=== PATIENT | female | born 1975 | race Caucasian/White ===

== ENCOUNTER → 2017-06-15 | Outpatient (CLI) | payer BC ==
--- NOTE | 2017-06-18 09:53 | MAM ---
EXAM DESCRIPTION: 3D Screening BILATERAL CLINICAL HISTORY: 41 yearsFemaleSCREEN. Postmenopausal. No HRT. COMPARISON: Baseline study at this facility. No prior reports available. TECHNIQUE: Bilateral CC and MLO projection full-field images, 3-D tomosynthesis digital mammographic technique. Also bilateral synthesized CC/ MLO full-field images. CAD not utilized. FINDINGS: The breast parenchymal density pattern is: Extremely dense breast tissue, which lowers the sensitivity of mammography. No skin thickening or nipple retraction focal asymmetry versus architectural distortion in the lower inner quadrant of the posterior third of the left breast near the skin surface at approximately 800 clock position and 8 cm from the breast. Not associated with calcifications. Bilateral solitary microcalcifications. No focal, stellate mass or density, , and no suspicious microcalcifications bilaterally . No focal asymmetry or architectural distortion in the right breast. IMPRESSION: BI-RADS CATEGORY: 0 - INCOMPLETE- Need additional imaging evaluation. FOLLOW-UP: Recall for additional imaging: Targeted ultrasound of the region of interest in the lower inner quadrant of the left breast, relatively superficial. Written communication explaining the results and follow-up will be mailed to the patient and referring care provider. Electronically signed by: Akash Lopez MD 06/18/2017 9:51 AM CDT Workstation: [id number]
== END ==
LOC: MAMMO 13:08
PROVIDERS: ATTEND Emergency Medicine
DX: Z12.31 Encounter for screening mammogram for malignant neoplasm of breast (principal)
CPT/HCPCS: G0202; G0279

== ENCOUNTER → 2017-07-01 | Outpatient (CLI) | payer BC ==
--- NOTE | 2017-07-01 15:41 | US ---
EXAM DESCRIPTION: Breast,Left ultrasound. CLINICAL HISTORY: 41 yearsFemaleABNORMAL MAMMO. History of multiple bilateral breast cysts. Palpable lump in the region of interest in the lower inner quadrant left breast. COMPARISON: Digital 3-D tomosynthesis screening bilateral breasts 06/15/2017. TECHNIQUE: Transcutaneous scanning of the lower inner quadrant of the left breast utilizing two-dimensional and Doppler modes. Scanning performed by the parts designer and Dr. Lopez. FINDINGS: No ultrasound findings of discrete solid mass, cyst, no large calcifications, or parenchymal edema, corresponding to the mammographic finding. At the 800 clock position of the left breast 4 cm from the nipple, a oval-shaped mass predominantly anechoic measuring 5 x 4 mm is visualized. Parallel orientation with well-defined borders and posterior acoustic enhancement. Consistent with a cyst. No solid mass, calcifications, or parenchymal edema. IMPRESSION: BI-RADS CATEGORY: 2 - BENIGN FINDINGS. FOLLOW UP: Return to routine digital bilateral 3-D tomosynthesis screening, one year interval from June 2017. The findings and the follow-up plan were reviewed in person with the patient after the examination. Written communication explaining the findings and follow-up, will be mailed to the patient and referring health care provider. According to the [employer], yearly mammograms are recommended starting at age 40 and continuing as long as a woman is in good health. Any breast change noted on a breast self-exam should be reported promptly to the patient's healthcare provider. Breast MRI is recommended for women with an approximately 20-25% or greater lifetime risk of breast cancer, including women with a strong family history of breast or ovarian cancer and women who have been treated for Hodgkin's disease. A negative mammographic report should not delay tissue diagnosis in patients with significant clinical history or physical findings. Extremely dense breast tissue limits the sensitivity of digital mammography. Electronically signed by: Akash Lopez MD 07/01/2017 3:40 PM CDT Workstation: [id number]
== END ==
LOC: MAMMO 14:30
PROVIDERS: ATTEND Emergency Medicine
DX: R92.8 Other abnormal and inconclusive findings on diagnostic imaging of breast (principal)

== ENCOUNTER 2018-11-27 10:40 | Emergency (ER) | payer BC ==
[2018-11-27 10:58] VITALS: BP 127/90; TEMP 97.1; O2SAT 95
--- NOTE | 2018-11-27 11:10 | ED.PDOC ---
History of Present Illness - General Chief Complaint: Neck Injury/Pain Stated Complaint: neck pain Time Seen by Provider: 11/27/18 11:08 Source: patient Exam Limitations: no limitations - History of Present Illness Initial Comments: patient comes in today for neck pain on the right side. Patient states it hurts for her to look up or bends down. She states this started yesterday mid morning without injury or trauma. She has never had this problem before. She denies any radiation, numbness of her hands or legs. Or any fever or chills. Patient states she's been trying to take ibuprofen which she uses for pain but it continues to hurt so she came in. She has no past medical history. And she has no other pertinent positives on review of systems. Timing/Duration: 24 hours Severity: moderate Improving Factors: nothing Worsening Factors: movement Associated Symptoms: denies symptoms Allergies/Adverse Reactions: Allergies Acetaminophen [From Vicodin] Allergy (Verified 03/27/15 19:21) Aspirin Allergy (Verified 03/27/15 19:21) Hydrocodone [From Vicodin] Allergy (Verified 03/27/15 19:21) Sulfa Drugs Allergy (Verified 03/27/15 19:21) Home Medications: Ambulatory Orders Nitroglycerin [Nitro-Dur] 0.3 mg TD AM #30 ml 12/29/12 Nitroglycerin [Nitrolingual Pumpspray] 0.4 mg SL Q5MX3 PRN #0 12/29/12 Nitroglycerin [Nitrostat] 0.3 mg SL Q5MX3 PRN #20 sub 12/29/12 Cyclobenzaprine HCl [Flexeril] 5 mg PO TID #15 tab 11/27/18 Review of Systems - Review of Systems Constitutional: States: no symptoms reported. Denies: chills, fever, weakness EENTM: States: no symptoms reported. Denies: ear pain, nose pain, nose congestion Respiratory: States: no symptoms reported. Denies: cough, short of breath Cardiology: States: no symptoms reported. Denies: chest pain Gastrointestinal/Abdominal: States: no symptoms reported. Denies: abdominal pain, diarrhea, nausea Genitourinary: States: no symptoms reported Past Medical History (General) - Patient Medical History Hx Cardiac Disorders: Yes Hx Congestive Heart Failure: No Hx Pacemaker: No Hx Hypertension: No Hx Diabetes: No Hx MRSA: No - Vaccination History Hx Tetanus, Diphtheria Vaccination: No Hx Influenza Vaccination: No Hx Pneumococcal Vaccination: No - Social History Hx Tobacco Use: No Hx Alcohol Use: Yes Hx Substance Use: No Hx Substance Use Treatment: No Hx Depression: No - Female History Patient : No Family Medical History - Family History Mother Living Status: Still Living Hx Family Congestive Heart Failure: Yes Hx Cardiac Disease: Yes Physical Exam - Physical Exam General Appearance: Alert, Comfortable, No apparent distress Eye Exam: bilateral normal Ears, Nose, Throat: hearing grossly normal, normal ENT inspection, normal pharynx Neck: supple, other - no tenderness at midline, spasm with pain throughout right trapezius muscle without trigger point Respiratory: chest non-tender, lungs clear, normal breath sounds Cardiovascular/Chest: normal peripheral pulses, regular rate, rhythm, no murmur Gastrointestinal/Abdominal: normal bowel sounds, non tender, soft Neurologic: no motor/sensory deficits, alert Progress - Progress Progress: atiqra has taken ibuprofen recently and declines any additional pain medication but does agree to muscle relaxers. Heat to the area and muscle relaxers which we've given her prescription for S she does not have someone to drive her home. 11/27/18 11:11 Departure - Departure Clinical Impression: Muscle spasm Disposition: Discharge to Home or Self Care Condition: Good Departure Forms: ED Discharge - Pt. Copy, Patient Portal Self Enrollment Referrals: YOBANI CHAPARRO [Primary Care Provider] - 1-2 Weeks Home Medications: Ambulatory Orders Nitroglycerin [Nitro-Dur] 0.3 mg TD AM #30 ml 12/29/12 Nitroglycerin [Nitrolingual Pumpspray] 0.4 mg SL Q5MX3 PRN #0 12/29/12 Nitroglycerin [Nitrostat] 0.3 mg SL Q5MX3 PRN #20 sub 12/29/12 Cyclobenzaprine HCl [Flexeril] 5 mg PO TID #15 tab 11/27/18 Additional Instructions: heat to the area and gentle massage. Follow up in 2-3 days in clinic if not improved. Return to the ER for severe worsening, change in sensation to her upper or lower extremities, fever. Sedation precautions for the muscle relaxer
== END 2018-11-27 11:18 | disposition home or self-care (01) ==
LOC: ER 10:40
DX: M62.838 Other muscle spasm (principal); I51.9 Heart disease, unspecified; Z79.899 Other long term (current) drug therapy; Z88.6 Allergy status to analgesic agent; Z88.5 Allergy status to narcotic agent; Z88.2 Allergy status to sulfonamides

== ENCOUNTER 2019-07-24 10:39 | Emergency (ER) | payer BC ==
--- NOTE | 2019-07-24 11:04 | ED.PDOC ---
History of Present Illness - General Chief Complaint: General Stated Complaint: right sided rib pain Time Seen by Provider: 07/24/19 11:00 Source: patient Exam Limitations: no limitations - History of Present Illness Initial Comments: 44 y/o female fell down 2 days back started having R sided rib pain on lower side 5/10 sharp , no sob , worse with breathing and movement Timing/Duration: other - 2 days Improving Factors: immobilization Worsening Factors: movement Associated Symptoms: denies symptoms, chest pain Allergies/Adverse Reactions: Allergies Acetaminophen [From Vicodin] Allergy (Verified 03/27/15 19:21) Aspirin Allergy (Verified 03/27/15 19:21) Hydrocodone [From Vicodin] Allergy (Verified 03/27/15 19:21) Sulfa Drugs Allergy (Verified 03/27/15 19:21) Home Medications: Ambulatory Orders Ibuprofen 800 mg PO TID PRN #15 tab 07/24/19 Review of Systems - Review of Systems Constitutional: States: no symptoms reported EENTM: States: no symptoms reported Respiratory: States: no symptoms reported Cardiology: States: no symptoms reported Gastrointestinal/Abdominal: States: no symptoms reported Genitourinary: States: no symptoms reported Musculoskeletal: States: other - R lower rib pain Skin: States: no symptoms reported Neurological: States: no symptoms reported Endocrine: States: no symptoms reported Hematologic/Lymphatic: States: no symptoms reported All other Systems: Reviewed and Negative Past Medical History (General) - Patient Medical History Hx Stroke: No Hx Cardiac Disorders: Yes Hx Congestive Heart Failure: No Hx Pacemaker: No Hx Hypertension: No Hx Diabetes: No Hx MRSA: No Surgical History: Hysterectomy - Vaccination History Hx Tetanus, Diphtheria Vaccination: No Hx Influenza Vaccination: No Hx Pneumococcal Vaccination: No - Social History Hx Tobacco Use: Yes Hx Alcohol Use: Yes Hx Substance Use: No Hx Substance Use Treatment: No Hx Depression: No - Female History Patient : No Family Medical History - Family History Mother Living Status: Still Living Hx Family Congestive Heart Failure: Yes Hx Family Hypertension: Yes Hx Cardiac Disease: Yes Hx Family Diabetes: Yes Physical Exam - Physical Exam General Appearance: Alert, Comfortable, No apparent distress, Well Developed Eye Exam: bilateral normal Ears, Nose, Throat: hearing grossly normal Neck: full range of motion, supple Respiratory: lungs clear - tenderness over the R lower ribs Cardiovascular/Chest: normal peripheral pulses, regular rate, rhythm Gastrointestinal/Abdominal: non tender, soft Back Exam: normal inspection, no CVA tenderness Extremity: normal range of motion, non-tender, normal inspection Neurologic: no motor/sensory deficits, alert, normal mood/affect, oriented x 3 Skin Exam: normal color, warm/dry Lymphatic: no adenopathy Progress - Progress Progress: 07/24/19 11:45 Spoke to the patient says that she has been taking ibuprofen without any side effects - EKG/XRAY/CT XRAY: Rib Xray Comments: Normal Departure - Departure Clinical Impression: Rib injury, Rib pain on right side Time of Disposition: 11:35 Disposition: Discharge to Home or Self Care Condition: Good Departure Forms: ED Discharge - Pt. Copy, Patient Portal Self Enrollment Instructions: Chest Pain That Is Not Caused by the Heart (DC), Costochondritis (DC) Diet: resume usual diet Activity: increase activity as tolerated Referrals: YOBANI CHAPARRO [Primary Care Provider] - 1-2 Weeks Prescriptions: Ibuprofen 800 mg PO TID PRN #15 tab PRN Reason: Mild To Moderate Pain Home Medications: Ambulatory Orders Ibuprofen 800 mg PO TID PRN #15 tab 07/24/19
--- NOTE | 2019-07-24 11:23 | RAD ---
: 1975. Technique: Portable AP chest x-ray. Comparison: December 28, 2012. Clinical history: rib pain . Heart size: Normal. Lungs: No acute consolidation. Pleura: No pleural effusion. No pneumothorax. Mediastinum and radhames: Unremarkable. Skeletal: Unremarkable. Support tubings: None. Impression: 1. No active disease in the chest. Electronically signed by: Benny Isabel MD 07/24/2019 11:21 AM CDT
--- NOTE | 2019-07-24 11:23 | RAD ---
EXAM: XR Right Ribs, 2 Views CLINICAL HISTORY: rib pain TECHNIQUE: Frontal and oblique views of the right ribs. COMPARISON: No relevant prior studies available. FINDINGS: Limitations: None. Lungs: Unremarkable as visualized. No consolidation. Pleural space: Unremarkable. No pneumothorax. Bones/joints: Unremarkable. No acute fracture. IMPRESSION: No acute findings. Electronically signed by: Constance Hernandez MD 07/24/2019 11:22 AM CDT
[2019-07-24 12:04] VITALS: O2SAT 99
[2019-07-24 12:53] VITALS: BP 106/71; TEMP 97.2
== END 2019-07-24 12:52 | disposition home or self-care (01) ==
LOC: ER 10:39
DX: S29.9XXA Unspecified injury of thorax, initial encounter (principal); I51.9 Heart disease, unspecified; Z87.891 Personal history of nicotine dependence; Z88.6 Allergy status to analgesic agent; Z88.5 Allergy status to narcotic agent; Z88.2 Allergy status to sulfonamides; W19.XXXA Unspecified fall, initial encounter; Y92.9 Unspecified place or not applicable